=== PATIENT | male | born 1960 | race Caucasian/White ===

== ENCOUNTER 2021-12-10 07:33 | Day surgery (SDC) | payer OTHER ==
[2021-12-06 13:45] VITALS: BMI 28.8
[2021-12-10] MEDS ORDERED: LIDOCAINE HCL/PF 2% SDV 5ML VIAL ONE (09:00)
[2021-12-10] MEDS ORDERED: PROPOFOL 20 ML ONE (09:00)
[2021-12-10 10:11] VITALS: TEMP 97.5
[2021-12-10 10:47] VITALS: BP 110/74; PULSE 71
== END 2021-12-10 10:45 | disposition home or self-care (01) ==
LOC: FASU-ENDO 07:33
PROVIDERS: ATTEND Internal Medicine Gastroenterology
PROC: 0DJD8ZZ Inspection of Lower Intestinal Tract, Via Natural or Artificial Opening Endoscopic (ICD-10-PCS; principal; 2021-12-10 09:43)
DX: Z12.11 Encounter for screening for malignant neoplasm of colon (principal); K57.30 Diverticulosis of large intestine without perforation or abscess without bleeding